=== PATIENT | male | born 1945 | race Caucasian/White ===

== ENCOUNTER 2017-02-11 08:41 | Day surgery (SDC) | payer OTHER ==
[~2017-02-11 08:41] MED LIST: Lactated Ringers 1,000 ML IV SCH; ceFAZolin 1 GM in Premix Bag 1 BAG IV ONE
--- NOTE | 2017-02-11 09:27 | PCM.PREANE ---
Preanesthetic Assessment - Anesthesia/Transfusion/Family Hx Anesthesia History: Prior Anesthesia Without Reaction Family History of Anesthesia Reaction: No Transfusion History: No Prior Transfusion(s) - Review of Systems General: No Symptoms Pulmonary: No Symptoms Cardiovascular: No Symptoms Gastrointestinal: No Symptoms Neurological: No Symptoms Other: Reports: None - Physical Assessment NPO Status Date: 02/10/17 O2 Sat by Pulse Oximetry: 95 Respiratory Rate: 16 Vital Signs: Last Vital Signs Temp 36.3 C 02/11/17 08:54 Pulse 67 02/11/17 08:54 Resp 16 02/11/17 08:54 BP 129/72 02/11/17 08:54 Pulse Ox 95 02/11/17 08:54 Height: 1.78 m Weight: 86.183 kg ASA Class: 2 ROM/Head Extension: Full Lungs: Clear to Auscultation, Normal Respiratory Effort Cardiovascular: Regular Rate, Regular Rhythm - Allergies Allergies/Adverse Reactions: Allergies Allergy/AdvReac Type Severity Reaction Status Date / Time No Known Allergies Allergy Verified 09/23/15 19:29 - Anesthesia Plan Pre-Op Medication Ordered: None - Acknowledgements Anesthesia Type Planned: MAC Pt an Appropriate Candidate for the Planned Anesthesia: Yes Alternatives and Risks of Anesthesia Discussed w Pt/Guardian: Yes Pt/Guardian Understands and Agrees with Anesthesia Plan: Yes PreAnesthesia Questionnaire HEENT History: Reports: Hard of Hearing, Other (See Below) Other HEENT History: wears reading glasses, susy hearing aids Cardiovascular History: Reports: High Cholesterol Respiratory History: Reports: Asthma, Sleep Apnea Other Respiratory History: uses CPAP Gastrointestinal History: Reports: GERD Genitourinary History: Reports: BPH Musculoskeletal History: Reports: Arthritis - Past Surgical History Head Surgeries/Procedures: Reports: None HEENT Surgical History: Reports: Cataract Surgery, Tonsillectomy Respiratory Surgical History: Reports: None GI Surgical History: Reports: Appendectomy, Cholecystectomy, Hernia, Inguinal Musculoskeletal Surgical History: Reports: Other (See Below) Other Musculoskeletal Surgeries/Procedures:: rt wrist surgery - SUBSTANCE USE Smoking Status *Q: Former Smoker Days Per Week of Alcohol Use: 0 Number of Drinks Per Day: 1 Total Drinks Per Week: 0 Recreational Drug Use History: No - HOME MEDS Home Medications: Home Meds Aspirin [[place] Aspirin] 81 mg PO DAILY 07/19/14 [History] Omeprazole [Prilosec] 20 mg PO DAILY PRN 07/19/14 [History] Salsalate 2 tab PO ACBREAKFAST 07/19/14 [History] Simvastatin [Zocor] 40 mg PO DAILY 07/19/14 [History] Pyridoxine HCl [Vitamin B-6] 1 tab PO DAILY 07/21/14 [History] Albuterol [Proventil HFA] 1 - 2 puff INH ASDIRECTED PRN 02/07/17 [History] Budesonide/Formoterol Fumarate [Symbicort 160-4.5 Mcg Inhaler] 2 puff INH BID [History] Hydroxychloroquine Sulfate 200 mg PO BID 02/07/17 [History] Salsalate 1 tab PO BEDTIME 02/07/17 [History] Tamsulosin HCl 1 tab PO BEDTIME 02/07/17 [History] - CURRENT (IN HOUSE) MEDS Current Meds: Current Medications Lactated Ringer's (Ringers, Lactated) 1,000 mls @ 125 mls/hr IV ASDIRECTED ANEL Last Admin: 02/11/17 08:52 Dose: 125 mls/hr Discontinued Medications Cefazolin Sodium/Dextrose 1 gm (/ Premix) 50 mls @ 100 mls/hr IV ONETIME ONE Stop: 02/11/17 05:29
[2017-02-11] MEDS ORDERED: fentaNYL 100 MCG/2 ML SDV ONE (11:26)
[2017-02-11] MEDS ORDERED: Midazolam 1 MG/ML 2 ML SDV ONE (11:26)
[2017-02-11] MEDS ORDERED: Propofol 200 MG/20 ML SDV ONE ×2 (11:26→11:29)
[2017-02-11] MEDS ORDERED: Lidocaine 2% 5 ML SDV ONE (11:26)
--- NOTE | 2017-02-11 12:30 | PCM.POSTAN ---
POST ANESTHESIA ASSESSMENT - MENTAL STATUS Mental Status: Alert, Oriented - RESPIRATORY Respiratory Status: Respiratory Rate WNL, Airway Patent, O2 Saturation Stable - CARDIOVASCULAR CV Status: Pulse Rate WNL, Blood Pressure Stable - GASTROINTESTINAL GI Status: No Symptoms - PAIN Pain Score: 0 - POST OP HYDRATION Hydration Status: Adequate & Stable
--- NOTE | 2017-02-11 12:56 | PCM48HPAN ---
Post Anesthesia Note - EVALUATION WITHIN 48HRS OF ANESTHETIC Vital Signs in Normal Range: Yes Patient Participated in Evaluation: Yes Respiratory Function Stable: Yes Airway Patent: Yes Cardiovascular Function Stable: Yes Hydration Status Stable: Yes Pain Control Satisfactory: Yes Nausea and Vomiting Control Satisfactory: Yes Mental Status Recovered: Yes
[2017-02-11 13:11] VITALS: BP 116/72
--- NOTE | 2017-02-11 13:18 | PCM.OPNOTE ---
- General Post-Op/Procedure Note Date of Surgery/Procedure: 02/11/17 Operative Procedure(s): excisional bx r axilla skin lesion Findings: 10mm skin lesion at R axilla, nonpigmented; incision 1.6 cm, see [id number] Pre Op Diagnosis: skin lesion at r axilla Post-Op Diagnosis: Same Anesthesia Technique: Moderate Sedation Primary Surgeon: Saud Niño Pathology: sent Complications: None Condition: Good Free Text/Narrative:: Intake & Output 02/10/17 02/11/17 02/11/17 22:59 06:59 14:59 Intake Total 1100 Balance 1100
--- NOTE | 2017-02-11 19:55 | OR ---
SURGEON: Saud Niño MD DATE OF PROCEDURE: 02/11/2017 PREOPERATIVE DIAGNOSIS: Skin lesion on the right axilla. POSTOPERATIVE DIAGNOSIS: Skin lesion on the right axilla. PROCEDURES PERFORMED: Excision and biopsy. COMPLICATIONS: None. FINDINGS: A pink-colored, broad-based, 10-mm skin lesion in right axilla on top of the vein, excised en bloc, and sent for pathology. Skin incision is 1.6 cm. PROCEDURE IN DETAIL: The patient was taken to operating room and placed in a supine position. Upon induction of mild general sedation, the patient's right axilla was prepped and draped in a sterile fashion, and local anesthetic was infiltrated with the right axilla and in the broad base, a 10-mm skin lesion, non-pigmented, was picked up using an 11-blade and it was excised en bloc using a fish-mouth incision and sent for pathology. Skin incision is 1.6 cm closed with a 3-0 Ethilon, and followed by appropriate dressing. POST-PROCEDURE CONDITION: The patient was awakened and transferred to recovery room in a hemodynamically stable condition. The patient tolerated the procedure well. There were no intraoperative complications. Dr. Niño was present throughout the procedure. AVA / JUSTICE /[id number]
== END 2017-02-11 13:27 | disposition home or self-care (01) ==
LOC: MW.SDS 08:41
PROVIDERS: ATTEND Surgery
DX: D22.5 Melanocytic nevi of trunk (principal); J45.909 Unspecified asthma, uncomplicated; E78.00 Pure hypercholesterolemia, unspecified; M17.11 Unilateral primary osteoarthritis, right knee; G47.30 Sleep apnea, unspecified; Z79.82 Long term (current) use of aspirin; Z79.899 Other long term (current) drug therapy; Z98.890 Other specified postprocedural states
CPT/HCPCS: 11401; J2250; J3010; J7120; 00400; 88305; J2704

== ENCOUNTER 2020-02-23 07:08 | Day surgery (SDC) | payer OTHER ==
[~2020-02-23 07:08] MED LIST changes: +Lidocaine 2% 5 ML SDV ONE; +Propofol 200 MG/20 ML SDV ONE; -ceFAZolin 1 GM in Premix Bag 1 BAG IV ONE; +fentaNYL 100 MCG/2 ML SDV ONE
--- NOTE | 2020-02-23 07:58 | PCM.PREANE ---
Preanesthetic Assessment - Anesthesia/Transfusion/Family Hx Anesthesia History: Prior Anesthesia Without Reaction Family History of Anesthesia Reaction: No Transfusion History: No Prior Transfusion(s) Intubation History: Unknown - Review of Systems General: No Symptoms Pulmonary: No Symptoms Cardiovascular: No Symptoms Gastrointestinal: No Symptoms, Other (family h/o colon cancer) Neurological: No Symptoms Other: Reports: None - Physical Assessment Vital Signs: Last Vital Signs Temp 37.5 C 02/23/20 07:19 Pulse 60 02/23/20 07:19 Resp 16 02/23/20 07:19 BP 145/74 H 02/23/20 07:19 Pulse Ox 94 L 02/23/20 07:19 Height: 5 ft 10 in Weight: 86.636 kg ASA Class: 2 Mental Status: Alert & Oriented x3 Airway Class: Mallampati = 2 Dentition: Reports: Normal Dentition Thyro-Mental Finger Breadths: 3 Mouth Opening Finger Breadths: 2 ROM/Head Extension: Limited/Partial Lungs: Clear to Auscultation, Normal Respiratory Effort Cardiovascular: Regular Rate, Regular Rhythm - Allergies Allergies/Adverse Reactions: Allergies Allergy/AdvReac Type Severity Reaction Status Date / Time No Known Allergies Allergy Verified 02/17/20 09:45 - Blood Blood Available: No - Anesthesia Plan Pre-Op Medication Ordered: None - Acknowledgements Anesthesia Type Planned: MAC Pt an Appropriate Candidate for the Planned Anesthesia: Yes Alternatives and Risks of Anesthesia Discussed w Pt/Guardian: Yes Pt/Guardian Understands and Agrees with Anesthesia Plan: Yes PreAnesthesia Questionnaire HEENT History: Reports: Hard of Hearing, Other (See Below) Other HEENT History: wears reading glasses, susy hearing aids Cardiovascular History: Reports: High Cholesterol Respiratory History: Reports: Asthma (mild), Sleep Apnea Other Respiratory History: uses CPAP Gastrointestinal History: Reports: GERD Genitourinary History: Reports: BPH Musculoskeletal History: Reports: Arthritis Neurological History: Reports: None Psychiatric History: Reports: Anxiety, Depression, PTSD Endocrine/Metabolic History: Reports: None Hematologic History: Reports: None Immunologic History: Reports: None Oncologic (Cancer) History: Reports: None Dermatologic History: Reports: None - Infectious Disease History Infectious Disease History: Reports: None - Past Surgical History Head Surgeries/Procedures: Reports: None HEENT Surgical History: Reports: Cataract Surgery, Tonsillectomy Cardiovascular Surgical History: Reports: None Respiratory Surgical History: Reports: None GI Surgical History: Reports: Cholecystectomy, Colonoscopy (' normal), Hernia, Inguinal Male Surgical History: Reports: None Endocrine Surgical History: Reports: None Neurological Surgical History: Reports: None Musculoskeletal Surgical History: Reports: Hip Replacement, Other (See Below) Other Musculoskeletal Surgeries/Procedures:: rt wrist surgery, susy VIKTORIYA - rt. in , left in Oncologic Surgical History: Reports: None Dermatological Surgical History: Reports: None - SUBSTANCE USE Tobacco Use Status *Q: Former Tobacco User Tobacco Use Within Last Twelve Months: No - HOME MEDS Home Medications: Home Meds Aspirin [[place] Aspirin EC] 81 mg PO DAILY 07/19/14 [History] Omeprazole [Prilosec] 20 mg PO DAILY PRN 07/19/14 [History] Salsalate 2 tab PO ACBREAKFAST 07/19/14 [History] Simvastatin [Zocor] 40 mg PO DAILY 07/19/14 [History] Pyridoxine HCl (Vitamin B6) [Vitamin B-6] 1 tab PO DAILY 07/21/14 [History] Albuterol [Proventil HFA] 1 - 2 puff INH ASDIRECTED PRN 02/07/17 [History] Budesonide/Formoterol Fumarate [Symbicort 160-4.5 Mcg Inhaler] 2 puff INH BID 02/07/17 [History] Hydroxychloroquine Sulfate 200 mg PO BID 02/07/17 [History] Salsalate 1 tab PO BEDTIME 02/07/17 [History] Tamsulosin HCl 0.4 mg PO BEDTIME 02/07/17 [History] Escitalopram Oxalate 10 mg PO DAILY 02/17/20 [History] - CURRENT (IN HOUSE) MEDS Current Meds: Current Medications Lactated Ringer's (Ringers, Lactated) 1,000 mls @ 125 mls/hr IV ASDIRECTED ANEL Last Admin: 02/23/20 07:40 Dose: 125 mls/hr Documented by: Discontinued Medications Fentanyl (Sublimaze) Confirm Administered Dose 100 mcg .ROUTE .STK-MED ONE Stop: 02/23/20 07:07 Lidocaine (Xylocaine-Mpf 2%) Confirm Administered Dose 5 ml .ROUTE .STK-MED ONE Stop: 02/23/20 07:07 Propofol (Diprivan 20 Ml) Confirm Administered Dose 400 mg .ROUTE .STK-MED ONE Stop: 02/23/20 07:07
[2020-02-23] MEDS ORDERED: Glycopyrrolate 0.2 MG/ML SDV ONE ×3 (08:27→08:32)
[2020-02-23] MEDS ORDERED: cefOXitin 1 GM Vial ONE (08:30)
[2020-02-23] MEDS ORDERED: Sodium Chloride 0.9% 20 ML ONE (08:30)
--- NOTE | 2020-02-23 08:59 | PCM.OPNOTE ---
- General Post-Op/Procedure Note Date of Surgery/Procedure: 02/23/20 Operative Procedure(s): colonoscope Findings: see [id number] Pre Op Diagnosis: scrn colonoscopy Post-Op Diagnosis: Same Anesthesia Technique: Moderate Sedation Primary Surgeon: Saud Niño Complications: None Condition: Good
--- NOTE | 2020-02-23 09:08 | PCM.POSTAN ---
POST ANESTHESIA ASSESSMENT - MENTAL STATUS Mental Status: Alert, Oriented - VITAL SIGNS Vital Signs: Last Vital Signs Temp 37.5 C 02/23/20 07:19 Pulse 70 02/23/20 09:05 Resp 16 02/23/20 09:05 BP 129/77 02/23/20 09:05 Pulse Ox 96 02/23/20 09:05 - RESPIRATORY Respiratory Status: Respiratory Rate WNL, Airway Patent, O2 Saturation Stable - CARDIOVASCULAR CV Status: Pulse Rate WNL, Blood Pressure Stable - GASTROINTESTINAL GI Status: No Symptoms - PAIN Pain Score: 0 - POST OP HYDRATION Hydration Status: Adequate & Stable - OBSERVATIONS Free Text/Narrative:: No anesthesia problems
[2020-02-23 09:16] VITALS: BP 143/76; PULSE 72
[2020-02-23] MEDS ORDERED: ePHEDrine 50 MG/ML SDV ONE (09:33)
--- NOTE | 2020-02-23 09:38 | PCM48HPAN ---
Post Anesthesia Note - EVALUATION WITHIN 48HRS OF ANESTHETIC Vital Signs in Normal Range: Yes Patient Participated in Evaluation: Yes Respiratory Function Stable: Yes Airway Patent: Yes Cardiovascular Function Stable: Yes Hydration Status Stable: Yes Pain Control Satisfactory: Yes Nausea and Vomiting Control Satisfactory: Yes Mental Status Recovered: Yes Vital Signs: Last Vital Signs Temp 36.3 C 02/23/20 09:09 Pulse 72 02/23/20 09:09 Resp 16 02/23/20 09:09 BP 143/76 H 02/23/20 09:09 Pulse Ox 93 L 02/23/20 09:09 - COMMENTS/OBSERVATIONS Free Text/Narrative:: Noanesthesia problems
--- NOTE | 2020-02-23 12:18 | OR ---
SURGEON: Saud Niño MD DATE OF PROCEDURE: 02/23/2020 PREOPERATIVE DIAGNOSIS: Screening colonoscopy. POSTOPERATIVE DIAGNOSIS: Diverticulosis. PROCEDURE PERFORMED: Colonoscopy. DESCRIPTION OF PROCEDURE: The patient was taken to the endoscopy room. A time out was called, patient identified, and procedure identified. Diprivan was then administrated. Patient went from awake to sleep, hearing doctor talking or door closing is normal. Perineum inspection and digital examination were then performed. A well- lubricated colonoscope was gently inserted through the rectum, advanced past the rectosigmoid junction, the descending colon, splenic flexure, transverse colon, hepatic flexure, ascending colon, arrived to the cecum. Cecum was identified as dictated in the finding. Then the scope was carefully withdrawn while attention was paid to the mucosal surface for any abnormality. Air will be sucked out during the scope withdrawal. At the rectum, retroflexed to examine any rectal diseases, fistula or hemorrhoids. Patient tolerated procedure well. There were no intraoperative complications, and Dr. Niño was present throughout the whole procedure. FINDINGS: 1. The patient has a total knee replacement within 11 months ago and Mefoxin 1 g IV was given. 2. The patient's bowel prep is average with some opaque liquid stool, no semi- formed stool, no stool ball. 3. Colon is rather straightforward. Cecum indicated by ileocecal fold, appendiceal orifice, one-to-one indentation. ScopeGuide is pointing south. His colon is relatively short at distance 78 cm. We keep looking around. We see the ileocecal fold, and we pass through the transverse colon. We could see the silhouette of the liver with a dark shadow of the cecum and then mucosa examined upon scope coming out with some irrigation. The patient has lots of diverticulosis, quite a lot, but they are small, suggests it has been there for quite a while. No signs or symptoms of diverticulitis. No inflammation. No mass, growth, polyp, inflammation, stricture, ulceration, AV malformation. The patient does have one spot, looked like AV malformation, in the left colon. Other than that no mass, no growth, no bleeding, or no ulcer. The patient has some internal hemorrhoid, no external hemorrhoid. The patient would benefit from repeat colonoscopy on as-needed basis as see is 74 years old now and on a clinical situation. AVA / JUSTICE /[id number]
== END 2020-02-23 09:30 | disposition home or self-care (01) ==
LOC: MW.SDS 07:08
PROVIDERS: ATTEND Surgery
DX: Z12.11 Encounter for screening for malignant neoplasm of colon (principal); K57.30 Diverticulosis of large intestine without perforation or abscess without bleeding; K64.8 Other hemorrhoids; J45.909 Unspecified asthma, uncomplicated; F32.9 Major depressive disorder, single episode, unspecified; G47.30 Sleep apnea, unspecified; F41.9 Anxiety disorder, unspecified; Z98.890 Other specified postprocedural states; Z79.82 Long term (current) use of aspirin; Z79.899 Other long term (current) drug therapy
CPT/HCPCS: G0121; J0694; J2001; J2704; J3010; J3490; J7120; 00812; 45378